=== PATIENT | male | born 1980 | race Caucasian/White ===

== ENCOUNTER 2017-05-18 18:49 | Emergency (ER) | payer OTHER ==
[~2017-05-18] VITALS: Ht 182.9 cm; Wt 92.0 kg
[2017-05-18 19:08] VITALS: BP 126/80
[2017-05-18] MEDS ORDERED: HYDROcodone/APAP 5/325 TABLET ONE (19:23)
[2017-05-18] MEDS ORDERED: LIDOCAINE 1%, 20ML ONE (19:30)
[2017-05-18] MEDS ORDERED: HYDROcodone/APAP 5/325 TABLET PO ONE (19:30)
[2017-05-18] MEDS ORDERED: PLEASE ENTER HEIGHT AND WEIGHT MC SCH (19:30)
== END 2017-05-18 21:25 | disposition home or self-care (01) ==
LOC: ED 21:19
DX: S01.01XA Laceration without foreign body of scalp, initial encounter (principal); W22.09XA Striking against other stationary object, initial encounter; Y93.89 Activity, other specified; Y92.89 Other specified places as the place of occurrence of the external cause; Y99.8 Other external cause status
CPT/HCPCS: 12034; 70450

== ENCOUNTER 2017-05-25 15:47 | Emergency (ER) | payer OTHER ==
[~2017-05-25] VITALS: Ht 182.9 cm; Wt 99.0 kg
[2017-05-25 15:52] VITALS: BP 126/79
== END 2017-05-25 16:29 | disposition home or self-care (01) ==
LOC: ED 16:17
DX: S01.01XD Laceration without foreign body of scalp, subsequent encounter (principal); X58.XXXD Exposure to other specified factors, subsequent encounter; Y92.89 Other specified places as the place of occurrence of the external cause; Y99.8 Other external cause status
CPT/HCPCS: 99281